=== PATIENT | male | born 1940 | race Caucasian/White ===

== ENCOUNTER 2025-05-23 21:01 | Outpatient (REF) | payer MEDICARE, SELFPAY ==
[2025-05-23 21:15] LABS: HCT 46.4 % (40.0-50.0); HGB 15.5 g/dL (13.5-17.5); MCH 32.3 pg (27.0-33.0); MCHC 33.4 % (32.0-36.0); MCV 97 fL (80-95); MPV 12.0 fL (8.0-11.0); Platelet Count 220 10^3/uL (130-400); RBC 4.80 10^6/uL (4.36-5.78); RDW 12.1 % (11.8-14.1); RDW-SD 43.1 fL; WBC 7.46 10^3/uL (4.4-10.8)
[2025-05-23 21:27] LABS: Iron 109 ug/dL (65-175)
[2025-05-23 21:53] LABS: ALT 34 U/L (16-63); AST 34 U/L (15-37); Albumin 3.9 g/dL (3.4-5.0); Alkaline Phosphatase 94 U/L (46-116); Anion Gap 6.9 mmol/L (3-11); BUN 21 mg/dL (7-18); Bilirubin, Total 0.6 mg/dL (0.2-1.0); CO2 28.1 mmol/L (21.0-32.0); Calcium 9.2 mg/dL (8.5-10.1); Chloride 105 mmol/L (98-107); Ferritin 136 ng/mL (26-388); Folate 15.6 ng/mL (8.6-20.0); Glucose 96 mg/dL (74-106); Potassium 4.7 mmol/L (3.5-5.1); Sodium 140 mmol/L (136-145); TSH (W/Ref FT4) 1.54 uIU/mL (0.36-3.74); Total Protein 7.3 g/dL (6.4-8.2); Vitamin B12 373 pg/mL (193-986); Vitamin D 25 Total 54 ng/mL (30-100)
[2025-05-24 17:24] LABS: T3,Free 3.8 pg/mL (2.8-5.3)
== END 2025-05-23 21:02 | disposition home or self-care (01) ==
LOC: NCHCN 21:01
PROVIDERS: Visit Provider Physician Assistant
DX: I48.91 Unspecified atrial fibrillation (principal); R53.83 Other fatigue; E55.9 Vitamin D deficiency, unspecified; E03.8 Other specified hypothyroidism
CPT/HCPCS: 80053; 82306; 85027; 82607; 82728; 82746; 83540; 84443; 84481